=== PATIENT | male | born 1980 | race Caucasian/White ===

== ENCOUNTER 2018-03-19 02:01 | Emergency (ER) | payer OTHER ==
[2018-03-19 02:49] LABS: ADD MAN DIFF? NO
[2018-03-19] MEDS: morphine 4 MG/ML VIAL IV (02:49)
[2018-03-19] MEDS: ONDANSETRON 4 MG INJ IV (02:49)
[2018-03-19 02:51] LABS: BASOPHILS % 0.3 % (0.0-2.0); EOSINOPHILS # 0.3 10^3/ul (0.0-0.5); EOSINOPHILS % 2.3 % (0.0-7.0); HEMATOCRIT 43.3 % (42.0-52.0); HEMOGLOBIN 14.4 g/dl (14.0-18.0); LYMPHOCYTES # 3.2 10^3/ul (0.8-2.9); LYMPHOCYTES % 28.9 % (15.0-51.0); MEAN CORPUSCULAR HEMOGLOBIN 28.8 pg (29.0-33.0); MEAN CORPUSCULAR HGB CONC 33.3 g/dl (32.0-37.0); MEAN CORPUSCULAR VOLUME 86.6 fl (82.0-101.0); MEAN PLATELET VOLUME 11.1 fl (7.4-10.4); MONOCYTE # 0.7 10^3/ul (0.3-0.9); MONOCYTES % 6.6 % (0.0-11.0); NEUTROPHIL # 6.8 10^3/ul (1.6-7.5); NEUTROPHILS % 61.8 % (39.0-77.0); PLATELET COUNT 231 10^3/UL (140-415); RED CELL DISTRIBUTION WIDTH 13.7 % (11.5-14.5)
[2018-03-19] MEDS: SOD CHLORIDE 0.9% 1,000 ML IV (03:00)
[2018-03-19 03:11] LABS: ALANINE AMINOTRANSFERASE 48 IU/L (13-69); ALBUMIN 4.3 g/dl (3.3-4.9); ALBUMIN/GLOBULIN RATIO 1.26; ALKALINE PHOSPHATASE 132 IU/L (42-121); ANION GAP 11 (5-13); ASPARTATE AMINO TRANSFERASE 24 IU/L (15-46); BILIRUBIN,INDIRECT 0.3 mg/dl (0-1.1); BILIRUBIN,TOTAL 0.3 mg/dl (0.2-1.3); BLOOD UREA NITROGEN 18 mg/dl (7-20); CARBON DIOXIDE 25 mmol/L (21-31); CHLORIDE 105 mmol/L (97-110); CREATININE 0.69 mg/dl (0.61-1.24); Estimated GFR > 60 mL/min (>60); GLUCOSE 98 mg/dl (70-220); LIPASE 94 U/L (23-300); SODIUM 141 mmol/L (135-144); TOTAL PROTEIN 7.7 g/dl (6.1-8.1)
== END 2018-03-19 04:04 | disposition home or self-care (01) ==
LOC: E/R 02:01
DX: K80.20 Calculus of gallbladder without cholecystitis without obstruction (principal)
CPT/HCPCS: 36415; 76705; 80053; 83690; 85025; 96374; 96375; 99285-25

== ENCOUNTER 2018-10-02 23:36 | Emergency (ER) | payer OTHER ==
[2018-10-03 02:03] LABS: ADD MAN DIFF? NO
[2018-10-03 02:04] LABS: WHITE BLOOD COUNT 9.8 10^3/ul (4.8-10.8)
[2018-10-03 02:04] LABS: BASOPHILS % 0.4 % (0.0-2.0); EOSINOPHILS # 0.2 10^3/ul (0.0-0.5); EOSINOPHILS % 2.1 % (0.0-7.0); HEMATOCRIT 44.5 % (42.0-52.0); HEMOGLOBIN 14.8 g/dl (14.0-18.0); LYMPHOCYTES # 3.6 10^3/ul (0.8-2.9); LYMPHOCYTES % 36.8 % (15.0-51.0); MEAN CORPUSCULAR HEMOGLOBIN 29.2 pg (29.0-33.0); MEAN CORPUSCULAR HGB CONC 33.3 g/dl (32.0-37.0); MEAN CORPUSCULAR VOLUME 87.9 fl (82.0-101.0); MEAN PLATELET VOLUME 11.1 fl (7.4-10.4); MONOCYTE # 0.7 10^3/ul (0.3-0.9); MONOCYTES % 7.2 % (0.0-11.0); NEUTROPHIL # 5.2 10^3/ul (1.6-7.5); NEUTROPHILS % 53.3 % (39.0-77.0); PLATELET COUNT 206 10^3/UL (140-415); RED BLOOD COUNT 5.06 10^6/ul (4.70-6.10); RED CELL DISTRIBUTION WIDTH 13.6 % (11.5-14.5)
[2018-10-03] MEDS: SOD CHLORIDE 0.9% 1,000 ML IV (02:10)
[2018-10-03] MEDS: morphine 4 MG/ML VIAL IV (02:10)
[2018-10-03] MEDS: ONDANSETRON 4 MG INJ IV (02:10)
[2018-10-03 02:11] LABS: ADD UMIC YES; UR ASCORBIC ACID NEGATIVE (NEGATIVE); UR BILIRUBIN (Dip) NEGATIVE (NEGATIVE); UR BLOOD (Dip) NEGATIVE (NEGATIVE); UR CLARITY CLEAR (CLEAR); UR COLOR STRAW (YELLOW); UR GLUCOSE (Dip) NEGATIVE (NEGATIVE); UR KETONES (Dip) NEGATIVE (NEGATIVE); UR LEUKOCYTE ESTERASE (Dip) TRACE Leu/ul (NEGATIVE); UR MUCUS FEW /HPF (NONE SEEN); UR NITRITE (Dip) NEGATIVE (NEGATIVE); UR RBC 1 /HPF (0-5); UR SPECIFIC GRAVITY (Dip) 1.019 (1.003-1.030); UR TOTAL PROTEIN (Dip) NEGATIVE (NEGATIVE); UR UROBILINOGEN (Dip) NEGATIVE (NEGATIVE); UR WBC 1 /HPF (0-5)
[2018-10-03 02:21] LABS: ALANINE AMINOTRANSFERASE 53 IU/L (13-69); ALBUMIN 4.2 g/dl (3.3-4.9); ALBUMIN/GLOBULIN RATIO 1.07; ALKALINE PHOSPHATASE 128 IU/L (42-121); ANION GAP 9 (5-13); ASPARTATE AMINO TRANSFERASE 39 IU/L (15-46); BILIRUBIN,INDIRECT 0.2 mg/dl (0-1.1); BILIRUBIN,TOTAL 0.2 mg/dl (0.2-1.3); BLOOD UREA NITROGEN 20 mg/dl (7-20); CALCIUM 8.7 mg/dl (8.4-10.2); CARBON DIOXIDE 25 mmol/L (21-31); CHLORIDE 109 mmol/L (97-110); CREATININE 0.62 mg/dl (0.61-1.24); Estimated GFR > 60 mL/min (>60); GLUCOSE 97 mg/dl (70-220); LIPASE 147 U/L (23-300); POTASSIUM 4.3 mmol/L (3.5-5.1); SODIUM 143 mmol/L (135-144); TOTAL PROTEIN 8.1 g/dl (6.1-8.1)
[2018-10-03 02:53] LABS: TROPONIN-I < 0.012 ng/ml (0.000-0.120)
[2018-10-03] MEDS: KETOROLAC 30 MG INJ IV (04:33)
== END 2018-10-03 04:42 | disposition home or self-care (01) ==
LOC: FTE 23:36
DX: K80.20 Calculus of gallbladder without cholecystitis without obstruction (principal)
CPT/HCPCS: 36415; 76705; 80053; 81001; 83690; 84484; 85025; 96374; 96375; 99285-25